=== PATIENT | male | born 1995 | race Caucasian/White ===

== ENCOUNTER 2018-02-06 18:50 | Emergency (ER) | payer OTHER ==
[~2018-02-06] VITALS: Ht 190.5 cm; Wt 91.4 kg
[2018-02-06 18:54] VITALS: BP 132/82
== END 2018-02-06 19:56 | disposition home or self-care (01) ==
LOC: ED 19:27
DX: R07.89 Other chest pain (principal)
CPT/HCPCS: 93005; 99283

== ENCOUNTER → 2018-02-15 | Outpatient (CLI) | payer OTHER | END | disposition home or self-care (01) | LOC: CVU 10:57 | PROVIDERS: ATTEND Internal Medicine Cardiovascular Disease | DX: I07.1 Rheumatic tricuspid insufficiency (principal) | CPT/HCPCS: 93306 ==

== ENCOUNTER 2019-12-26 09:54 | Outpatient (CLI) | payer OTHER | END 2019-12-26 23:59 | disposition home or self-care (01) | LOC: CARD 09:54 | PROVIDERS: ATTEND Nurse Practitioner Primary Care | DX: M79.632 Pain in left forearm (principal); R20.0 Anesthesia of skin | CPT/HCPCS: 95886; 95911 ==